=== PATIENT | female | born 1950 | race Caucasian/White ===

== ENCOUNTER 2017-03-14 05:15 | Inpatient (IN) | payer OTHER ==
[2017-03-14] VITALS (9 sets, daily range): BP systolic 109–151; BP diastolic 44–80
[~2017-03-14] VITALS: Ht 165.1 cm; Wt 118.8 kg
--- NOTE | ~2017-03-14 | PR ---
[place], [place] PROGRESS NOTE NAME: GEORGI BRENNAN [facility] #: [id number] UNIT #: [id number] ROOM: 531 DOCTOR: KT GROSS MD,GABY BIRTHDATE: [birth year] DOS: 03/15/2017 SUBJECTIVE: She was independently seen and examined today with [id number] encounter. History was confirmed. Physical examination performed. All the available labs reviewed. Assessment and management for this patient personally completed for the patient today's visit as well. The note done by the medical care administrator, was approved. She has used the BiPAP for the patient, which was ordered yesterday. She reported reduction in symptoms of shortness of breath, cough and other symptoms in the last 24 hours. She has been noted quite comfortable at this time, sitting on the side of the bed. The cough has been noted decreased, but not resolved. Shortness of breath are noted decreased, oxygen supplementation for the patient has been gradually decreased, currently notify liter nasal cannula supplementation oxygen with a saturation recorded about 88-89% at rest. She refused to have arterial blood gases done today for assessment of the improvement in the ventilatory status. OBJECTIVE: VITAL SIGNS: The patient showed normal temperature, respiratory rate 18, heart rate 68, blood pressure 132/60. The pulse oxygen saturation of the patient noted on 50% Venturi mask as 94% saturation, the BiPAP with the same. HEENT AND GENERAL: Exam is noted with chronic obesity. NECK: Supple. CARDIOVASCULAR: S1, S2 audible. LUNGS: Noted with diffuse reduction in the breath sounds with expiratory wheezing, partially decreased from previous exam. ABDOMEN: Soft and obese. EXTREMITIES: Shows chronic obesity. LABORATORY DATA: CBC this morning was noted as normal. The BMP was noted as normal BUN and creatinine. The influenza A and B, nasal washing antigen for the patient noted negative. The respiratory viral panel for the patient was done yesterday, which was pending. Arterial blood gas on the BiPAP, the patient setting was 16/10 for about 4 hours, pH of 7.32, pCO2 of 52, pO2 of 71 noted 50% oxygen. IMPRESSION: 1. The patient has severe acute hypoxemic and hypercapnic respiratory failure as a result of acute exacerbation of chronic obstructive pulmonary disease. 2. History of obstructive sleep apnea disorder as well. 3. Chronic morbid obesity as well. 4. History of essential hypertension. PLAN OF MANAGEMENT: Dose of the Solu-Medrol of the patient will be decreased for the patient, this morning to 40 mg q. 8 hours. Continuation of the antibiotics and bronchodilators. She was encouraged about use of the BiPAP. She was also started Chantix to help with tobacco cessation. No acute side effects of the patient at this time were noted. Continuation of the other previous medical therapy, plan of management as in progress. [place], [place] PROGRESS NOTE NAME: GEORGI BRENNAN Enrique UNIT #: [id number] ROOM: 531 DOCTOR: GABY SARKAR MD BIRTHDATE: [birth year] GABY MERAZ MD CM:SAPNA [id number] GABY GROSS MD 03/15/17 2258 interface
--- NOTE | ~2017-03-14 | PR ---
[place], [place] PROGRESS NOTE [id number] UN[facility] #: [id number] ROOM: 531 DOCTOR: KT GROSS MD,GABY BIRTHDATE: [birth year] DOS: 03/16/2017 SUBJECTIVE: The patient was independently seen and examined, [id number]-px-[id number] encounter, history was confirmed. Physical examination was personally performed as well. All the labs were reviewed. Assessed medical management changes as necessary were made today for this visit. The note done by the medical pathologist was approved. The patient has been showing reduction and improvement of the respiratory symptom. Oxygen requirement noted 4 liter nasal cannula this morning at the bedside. OBJECTIVE VITAL SIGNS: Reviewed was noted essentially normal. Pulse oxygen saturation 94% on 4 liters nasal cannula. LUNGS: The patient noted with moderate reduction in breath sounds and improvement in the wheezing and air entry. ABDOMEN: Soft and obese. Bowel sounds present. EXTREMITIES: No edema. LABORATORY DATA: BMP for the patient was essentially noted grossly normal. The CBC was noted normal. IMPRESSION: 1. The patient with resolving acute hypercapnic and severe hypoxic respiratory failure with current medical management with acute exacerbation of chronic obstructive pulmonary disease. 2. History of obstructive sleep apnea disorder. PLAN OF TREATMENT: The patient would be recommended about reduction of the corticosteroid dose. Ambulation with and without oxygen to be done. Consider possible home discharge in the morning on oral medications converted as an antibiotic and the steroids. GABY MERAZ MD CM:PNTRANS [id number] GABY GROSS MD 03/17/17 0027 interface
--- NOTE | ~2017-03-14 | CON ---
[place], [place] REPORT OF CONSULTATION [id number] #: [id number] ROOM: 531 DOCTOR: GABY SARKAR MD BIRTHDATE: [birth year] DOS: 03/14/2017 PULMONARY CONSULTATION EVALUATION AND MANAGEMENT REASON FOR CONSULTATION: Assess the patient for acute respiratory failure and symptoms of shortness of breath. HISTORY OF PRESENT ILLNESS: A 66-year-old white female, who has been admitted to the hospital, as she developed progressive increased respiratory symptom for the past few days. The symptoms have been noted with severe shortness of breath for the past 2 days associated with a sore throat, nonproductive cough and wheezing. Shortness of breath was occurring with minimal exertion. The symptoms got significantly worsened prior to assessment in the Emergency Room this morning. She has been assessed in the Emergency Room and was noted pulse oxygen saturation only 71%, 5 liter nasal cannula. The patient was admitted to the hospital for further medical management. The patient does use oxygen supplementation 5 liter nasal cannula at home for the medical management of hypoxic respiratory failure. Currently, the patient has been using oxygen supplementation with the Venturi Mask. REVIEW OF SYSTEMS: CONSTITUTIONAL: She does complain of symptoms of fatigue and tiredness. Did not report any symptoms of fever or chills. EYES: Denies any burning, redness, or tenderness. EARS, NOSE, THROAT: Denies any symptoms of hoarseness. Denies postnasal drainage or epistaxis, does complain of sore throat. CARDIOVASCULAR: Denies anginal pain, edema or pain of the lower extremity. GASTROINTESTINAL: Dysphagia, nausea, vomiting, diarrhea, abdominal pain, hematemesis, melena, hematochezia, or abnormal weight loss, history of chronic severe obesity was known. GENITOURINARY: Dysuria, suprapubic pain or flank pain. SKIN: Denies lesions or rashes. MUSCULOSKELETAL: Denies acute joint pain, redness, tenderness. CENTRAL NERVOUS SYSTEM: Denies dizziness, diplopia, migraine headache, seizures or tingling sensation of the extremities. PAST MEDICAL HISTORY: Known with history of: 1. COPD. 2. Chronic hypoxic respiratory failure with use of oxygen 5 liters nasal cannula. 3. Obstructive sleep apnea disorder (noncompliant with the treatment with obstructive sleep apnea disorder diagnosis). 4. Hypothyroidism. 5. Morbid obesity. 6. Vitamin B12 deficiency. 7. Chronic nicotine dependence. PAST SURGICAL HISTORY: Reported. 1. Complete hysterectomy. 2. Cholecystectomy. [place], [place] REPORT OF CONSULTATION [facility] [id number] UNIT #: [id number] ROOM: 531 DOCTOR: KT GROSS MD,GABY BIRTHDATE: [birth year] SOCIAL HISTORY: The patient is . She has 2 children. Smoking was noted 1 pack of cigarettes per day from teenager, currently decreased to half a pack of cigarettes per day. The patient denies any history of alcohol use or any illicit drug use. Denies any history of occupation related pulmonary exposure. FAMILY HISTORY: Both parents have been . Father from complication mesothelioma. Mother from complication of congestive heart failure. HOME MEDICATIONS: Noted, reduce the use of amoxicillin, Zithromax, vitamin B12, Mucinex, levothyroxine, prednisone, and ProAir HFA inhaler. DRUG ALLERGIES: Noted, no known drug allergies. PHYSICAL EXAMINATION: GENERAL: This is a 66-year-old female, who has been currently noted with mild tachypnea at rest, resting in the bed. Height of 5 feet 5 inches, weight of 262 pounds, BMI 43.5. VITAL SIGNS: Normal temperature since admission, last few hours; respiratory 18-25; heart rate 89-102; blood pressure 151/52-190/65. Pulse oxygen saturation with the 50% Venturi mask 93% saturation, 5 liters nasal cannula 74% saturation in the Emergency Room recorded. HEENT: Shows head was atraumatic. Eyes nonicterus. Decreased posterior pharyngeal space, high tongue base and crowding of soft tissue structures. NECK: Supple. CARDIOVASCULAR: S1, S2 audible. No added sounds. LUNGS: General reduction in the breath sounds noted in the lungs bilaterally with diffuse expiratory wheezing, decreased air entry. There were no crackles. ABDOMEN: Noted, severe obesity. Bowel sounds present without any tenderness. EXTREMITIES: Shows chronic obesity without any edema, clubbing, cyanosis. CENTRAL NERVOUS SYSTEM: Cranial nerves 2-12 intact. No focal deficit. MUSCULOSKELETAL: No gross deformities. SKIN: Visible skin, no lesions or rashes. LABORATORY DATA: CBC 03/14, this morning was noted as completely normal. Chest x-ray, 1 view, which was done on 03/14, was noted as patchy infiltration was suspected in the left and the right perihilar area. Lactic acid noted 1.2. CMP of the patient this morning was noted normal BUN and creatinine. Other electrolytes are normal. D-dimer 0.49. Arterial blood gas of the patient, pH of 7.29, pCO2 of 61, pO2 of 63.9. The troponin was noted as normal. IMPRESSION: 1. The patient has been admitted to the hospital with current diagnosis of severe acute hypercapnic respiratory failure with acute hypoxic respiratory failure as a result of acute exacerbation of chronic obstructive pulmonary disease, history of chronic nicotine dependency. Possibility of small infiltration with the patient secondary to acute viral bacterial pneumonia would be considered as well. 2. History of morbid obesity with obstructive sleep apnea disorder, noncompliant with the treatment. [place], [place] REPORT OF CONSULTATION NAME: GEORGI BRENNAN UNIT #: [id number] ROOM: 531 DOCTOR: GABY SARKAR MD BIRTHDATE: [birth year] 3. History of morbid obesity as well. 4. History of essential hypertension and other medical illnesses. PLAN OF MANAGEMENT: The patient will be ordered the BiPAP to help to improve and stabilize the respiratory status, if tolerated, the setting of the BiPAP will be ordered with settings of 16/10 for this patient with repeating arterial blood gas in about 3 hours to reassess the response for the patient. The patient does use the BiPAP. Bronchodilator will be continued. Continuation of the antibiotic. The respiratory viral panel was the ordered. Solu-Medrol currently ordered. The patient 60 mg q. 8 hours, which would suffice. She agrees to use the Chantix; however, smoking cessation, which has been ordered as well. Collect the sputum for Gram stain and culture. The patient is able to expectorate sputum as well. Additional treatment changes continue to be made based on the progression of the illness. All other supportive plan of management and care. Respiratory viral panel as well as influenza, nasal washing antigens were ordered as well. Thanks for allowing me to participate in the care of this patient. GABY MERAZ MD CM:CONSTR:REPORT OF CONSULTATION 1257 03/15/17 0057 interface
--- NOTE | ~2017-03-14 | PR ---
[place], [place] PROGRESS NOTE NAME: GEORGI BRENNAN UNIT #: [id number] ROOM: 531 DOCTOR: GABY SARKAR MD BIRTHDATE: [birth year] DOS: 03/15/2017 SUBJECTIVE: The patient has been noted continued improvement and resolution of the acute symptom. She has been using oxygen supplementation between 2 and 3, 4 liters cannula. The patient has not been noted symptoms of chest pain. OBJECTIVE: VITAL SIGNS: For the patient which has been recorded showed normal temperature, respiratory rate 20, heart rate 73, blood pressure 136/63. The pulse oxygen saturation for the patient 4 liters 95% saturation. HEENT AND GENERAL: Chronic obesity. NECK: Supple. CARDIOVASCULAR: S1, S2 audible. LUNGS: For the patient was noted without any crackles, rhonchi, or wheezing at this time. ABDOMEN: Soft and obese. LABORATORY DATA: BMP of the patient was noted as normal. The CBC of the patient of 03/17/2017 remains normal. The respiratory viral panel for the patient nasopharyngeal specimen, the patient noted positive for rhinovirus. IMPRESSION: 1. The patient with exacerbation of chronic obstructive pulmonary disease secondary to acute viral infection with [id number] hypercapnic hypoxic respiratory failure, markedly improved in the past 2 days. 2. History of obstructive sleep apnea disorder. PLAN OF TREATMENT: From the pulmonary standpoint, the patient could be discharged home on tapering dose of prednisone. No further antibiotic will be needed since the patient currently tolerating antiviral in origin. She was advised to continue home medication. The patient with oxygen supplementation and for chronic obstructive pulmonary disease as well as obstructive sleep apnea disorder. Outpatient assessment could be established by the patient for further total pulmonary assessment as an outpatient. [place], [place] PROGRESS NOTE NAME: GEORGI BRENNAN UNIT #: [id number] ROOM: 531 DOCTOR: GABY SARKAR MD BIRTHDATE: [birth year] GABY MERAZ MD CM:PNTRANS [phone] GABY GROSS MD 03/18/17 0232 interface
--- NOTE | ~2017-03-14 | PR ---
[place], [place] PROGRESS NOTE [id number] UN[facility] #: [id number] ROOM: 531 DOCTOR: MARBIN HOLGUIN DO BIRTHDATE: [birth year] DOS: 03/16/2017 This note is to be attached to the progress note dictated separately by Dr. Duron. SUBJECTIVE: The patient was evaluated today. She is awake and responsive. She denies any chest pain. States her breathing seems to have improved, though she is still having some occasional shortness of breath. Denies nausea, vomiting, diarrhea or any other symptoms. OBJECTIVE: VITAL SIGNS: Temperature is 98.3, pulse was 69, respiratory rate 20, blood pressure is 138/62, bedside pulse oximetry is 97% on 4 liters nasal cannula. GENERAL: Awake, alert, oriented, no acute distress. HEART: Regular rate and rhythm. No murmur. PULMONARY: Lungs moving more air with minimal wheezing. No crackles left. ABDOMEN: Soft, nontender, nondistended. HEENT: No change. EXTREMITIES: No edema or erythema. PSYCHOLOGIC: Good recent and remote memory. NEUROLOGIC: No acute focal neuro deficits. SKIN: No new lesions or ulcerations. LABORATORY DATA: WBC 7.6, hemoglobin 12.6 and platelets are 222. Chemistries from this morning, sodium is 142, potassium is 4.3, chloride is 105, carbon dioxide 31, creatinine 0.76 and estimated GFR ____, glucose is 117, calcium is 8.3. Vitamin D is 19.2. Vitamin B12 is 497. TSH is 6.49. D4 is 0.57 and vitamin D is 93.2. ASSESSMENT: 1. Community-acquired pneumonia, continues to improve. 2. Hypoxemic and hypercapnic respiratory failure with chronic obstructive pulmonary disease exacerbation. 3. Chronic Morbid obesity. 4. Essential hypertension. PLAN AND MANAGEMENT: The Solu-Medrol has been decreased again. The patient is doing well. We will be continuing the bronchodilators and the current antibiotics. We will be adding a BiPAP at night. The patient will likely be discharged tomorrow if she continues to do well. For more information, please see Dr. Duron's note. [employer]LE[employer], DO [place], [place] PROGRESS NOTE NAME: GEORGI BRENNAN Enrique UNIT #: [id number] ROOM: 531 DOCTOR: MARBIN HOLGUIN DO BIRTHDATE: [birth year] GABY DURON MD CM:SAPNA [id number] MARBIN HOLGUIN DO 03/17/17 1321 interface
--- NOTE | ~2017-03-14 | PR ---
[place], [place] PROGRESS NOTE NAME: GEORGI BRENNAN [facility] #: [id number] UNIT #: [id number] ROOM: 531 DOCTOR: MARBIN HOLGUIN DO BIRTHDATE: [birth year] DOS: 03/15/2017 SUBJECTIVE: Patient was evaluated today. She is awake, alert and responsive. She denies any nausea, vomiting, diarrhea, lightheadedness or chest pain. She is stating that her breathing has improved since yesterday. Denies any fevers overnight or any exacerbations since yesterday. OBJECTIVE: VITAL SIGNS: Temperature 97.7, pulse 68, respirations 18, blood pressure 132/60, and bedside pulse oximetry is 94% on Venturi mask at 50% oxygen flow rate. GENERAL: Awake, alert, oriented, minimal distress. HEENT: Head, normocephalic, atraumatic. Eyes, no lesions or ulcerations. ENT: No changes. NECK: Without lesions. Trachea is midline. LUNGS: Diminished breath sounds with some rhonchi and coughing. No clear crackles could be heard. CARDIAC: Regular rate and rhythm. No gallop, no murmur. ABDOMEN: Soft, nontender, nondistended, no masses. EXTREMITIES: Some edema can be seen, but no cyanosis or erythema. NEUROLOGIC: Grossly intact without any acute or focal neuro deficits. PSYCHOLOGICAL: Fair judgment and insight. SKIN: Warm and dry without new lesions or ulcerations. LABORATORY DATA: Sodium 139, potassium 4.5, chloride 105, carbon dioxide 30, creatinine 0.73 and GFR is more than 60, glucose is 129. A1c is 5.5. Vitamin D is low at 19.2. WBC is 5.5, hemoglobin is 12.6 and platelets are 206. Troponins negative. Microbiology: Blood cultures are pending. Urine culture showed preliminarily no growth. ASSESSMENT: 1. Acute exacerbation of chronic obstructive pulmonary disease with likely overlying pneumonia. 2. Morbid obesity with obstructive sleep apnea. 3. Essential hypertension. 4. Tobacco abuse. 5. Vitamin D deficiency. PLAN: We will continue with the current treatment with tapering down the Solu-Medrol to 40 mg from 60 every 8 hours. We will also continue with Rocephin and azithromycin and reevaluate tomorrow. Otherwise, if you have any questions or you need anymore information, please see Dr. Duron's note for more details. MARBIN HOLGUIN DO [place], [place] PROGRESS NOTE NAME: GEORGI BRENNAN UNIT #: [id number] ROOM: 531 DOCTOR: MARBIN HOLGUIN DO BIRTHDATE: [birth year] GABY DURON MD CM:PNTIMOTHY [id number] MARBIN HOLGUIN DO 03/16/17 0616 interface
[~2017-03-14 05:15] MED LIST: 'zithromax250 MG PO; AMOXICILLIN500 MG PO; DELTASONE10 MG PO; LEVOTHYROXINE0.2 MG PO; MUCINEX600 MG PO; PROAIR HFA0.09 MG/AC INH; VITAMIN B-12500 MCG PO
[2017-03-14 06:01] LABS: BASO % 0.2 % (0.0-1.0); HEMOGLOBIN 14.4 g/dl (12.0-16.0); LYMPH # 1.6 10*3/uL (1.3-4.4); LYMPH % 26.7 % (27.0-41.0); MEAN CELL VOLUME 98.7 fl (81.0-99.0); MEAN CORPUSCULAR HGB 30.9 pg (27.0-31.0); MEAN CORPUSCULAR HGB CONC 31.3 g/dl (33.0-37.0); MEAN PLATELET VOLUME 9.2 fl (9.6-12.3); MONO # 0.6 10*3/uL (0.1-1.0); MONO % 10.1 % (3.0-9.0); NEUT # 3.8 10*3/uL (2.3-7.9); NEUT % 62.7 % (47.0-73.0); PLATELET COUNT AUTOMATED 205 10*3/uL (130-400); RED BLOOD COUNT 4.66 10*6/uL (4.10-5.10); RED CELL DISTRI WIDTH 14.6 % (0-14.5); WHITE BLOOD COUNT 6.1 10*3/uL (4.8-10.8)
[2017-03-14 06:17] LABS: ALBUMIN 3.6 gm/dl (3.1-4.5); ALKALINE PHOSPHATASE 74 U/L (45-117); BUN 12 mg/dl (7-24); CHLORIDE 105 mmol/L (98-107); CREATININE 0.85 mg/dL (0.55-1.02); POTASSIUM 4.2 mmol/L (3.5-5.1); SGOT/AST 20 IU/L (3-35); SGPT/ALT 27 U/L (12-78); SODIUM 140 mmol/L (136-145)
[2017-03-14 06:30] LABS: TROPONIN I < 0.015 ng/ml (<0.045)
[2017-03-14 07:13] LABS: ABG BASE EXCESS 1.2 mmol/L (-2.0-2.0); ABG HCO3 28.7 mmol/l (22-26); ABG O2 SATURATION 91.6 % (95-97); ARTERIAL BLOOD GAS PH 7.295 (7.35-7.45); ARTERIAL BLOOD GAS PO2 63.9 mmHg (80-90)
--- NOTE | 2017-03-14 07:57 | NUR ---
A 66, admitted to , under the services of FIONA Douglas DO with a diagnosis of PNEUMONIA, ACUTE ON CHRONIC RESP FAILURE. Chief complaint is SHORTNESS OF BREATH. Patient arrived via bed from ER. Monitor applied. Initial assessment completed. Vital signs taken and recorded. FIONA DOUGLAS DO notified of admission to the unit. Orders received. See assessment for past medical history, medications and allergies. Patient and/or family oriented to unit. [facility] visitation policy reviewed. Clothing/patient valuable form completed. AMAN HUITRON
--- NOTE | 2017-03-14 08:03 | NUR ---
MED RECONCILIATION COMPLETED AT BEDSIDE WITH PT AND DAUGHTER.
[2017-03-14] MEDS ORDERED: ARMOUR THYROID180 M1 PO (08:21)
[2017-03-14] MEDS ORDERED: CHANTIX1 M1 PO (08:22)
--- NOTE | 2017-03-14 09:06 | NUR ---
PT REFUSES FLU VACCINE.
[2017-03-14 13:41] LABS: BILIRUBIN NEGATIVE (NEGATIVE); BLOOD 2+ (NEGATIVE); CLARITY CLEAR (CLEAR); COLOR YELLOW (YELLOW); GLUCOSE TRACE (NEGATIVE); KETONE NEGATIVE (NEGATIVE); LEUKO ESTERASE NEGATIVE (NEGATIVE); NITRITE NEGATIVE (NEGATIVE); SPECIFIC GRAVITY >= 1.030 (1.005-1.030); UROBILINOGEN 0.2 E.U./dl (0.2-1.0)
[2017-03-14 13:50] LABS: BACTERIA 1+; EPITHELIAL CELLS 0-2; RBC 0-2 rbc/hpf (0-2)
--- NOTE | 2017-03-14 15:03 | NUR ---
COLLECTED RVP AND RAPID INFLUENZA AND RVP SWABBS PER PHYSICIAN ORDER.
[2017-03-14] MEDS ORDERED: ARMOUR THYROID120 M1 PO (15:22)
--- NOTE | 2017-03-14 15:23 | NUR ---
VERIFIED ARMOUR THYROID THROUGH [facility].
[2017-03-14 18:09] LABS: ABG BASE EXCESS -0.1 mmol/L (-2.0-2.0); ABG HCO3 26.3 mmol/l (22-26); ABG O2 SATURATION 95.2 % (95-97); ARTERIAL BLOOD GAS PCO2 52.3 mmHg (35-45); ARTERIAL BLOOD GAS PH 7.322 (7.35-7.45); ARTERIAL BLOOD GAS PO2 71.6 mmHg (80-90)
--- NOTE | 2017-03-14 18:27 | NUR ---
NOTIFIED DR MERAZ OF ABG RESULTS. HE WANTS PT TO BE ON CONTINUOUS BIPAP EXCEPT FOR MEALS AND REPEAT ABG'S IN AM. NOTIFIED GEE.RT.
[2017-03-15] VITALS: BP 129/77
[2017-03-15 06:28] LABS: HEMATOCRIT 40.5 % (37.0-47.0); HEMOGLOBIN 12.6 g/dl (12.0-16.0); LYMPH # 0.8 10*3/uL (1.3-4.4); LYMPH % 14.9 % (27.0-41.0); MEAN CELL VOLUME 97.8 fl (81.0-99.0); MEAN CORPUSCULAR HGB 30.4 pg (27.0-31.0); MEAN CORPUSCULAR HGB CONC 31.1 g/dl (33.0-37.0); MONO # 0.3 10*3/uL (0.1-1.0); MONO % 5.8 % (3.0-9.0); NEUT # 4.4 10*3/uL (2.3-7.9); NEUT % 78.9 % (47.0-73.0); PLATELET COUNT AUTOMATED 206 10*3/uL (130-400); RED BLOOD COUNT 4.14 10*6/uL (4.10-5.10); RED CELL DISTRI WIDTH 14.2 % (0-14.5); WHITE BLOOD COUNT 5.5 10*3/uL (4.8-10.8)
[2017-03-15 06:47] LABS: ALBUMIN 3.1 gm/dl (3.1-4.5); BUN 14 mg/dl (7-24); CHLORIDE 105 mmol/L (98-107); CHOLESTEROL 223 mg/dL (<200); CREATININE 0.73 mg/dL (0.55-1.02); FREE T4 0.57 ng/dl (0.76-1.46); PHOSPHOROUS 2.5 mg/dL (2.5-4.9); POTASSIUM 4.5 mmol/L (3.5-5.1); SGOT/AST 18 IU/L (3-35); SGPT/ALT 23 U/L (12-78); SODIUM 139 mmol/L (136-145); TOTAL PROTEIN 6.9 gm/dL (6.4-8.2); TRIGLYCERIDES 75 mg/dl (<150); VLDL CHOLESTEROL 15 mg/dL (6-40)
[2017-03-15 06:53] LABS: ALKALINE PHOSPHATASE 59 U/L (45-117); HDL CHOLESTEROL 87 mg/dl (40-60); LDL CHOLESTEROL 121 mg/dL (9-159)
[2017-03-15 07:20] LABS: VITAMIN D, 25-HYDROXY 19.2 ng/mL (30-100)
[2017-03-15 08:00] VITALS: BP 132/60
--- NOTE | 2017-03-15 08:00 | NUR ---
ASSUMED CARE OF PATIENT, PATIENT HAS BEEN TRANSFERRED FROM BIPAP TO VENTURI MASK THIS MORNING. PLEASANT, COOPERATIVE.
--- NOTE | 2017-03-15 08:00 | NUR ---
REFUSES TO HAVE ABG PERFORMED. RN PRESENT AND AWARE.
--- NOTE | 2017-03-15 08:02 | NUR ---
PT WANTING BIPAP OFF AT THIS TIME. OFF BIPAP, PLACED ON 50% VM. RN PRESENT AND AWARE.
[2017-03-15 12:00] VITALS: BP 146/59
[2017-03-15 16:00] VITALS: BP 146/57
[2017-03-15 20:00] VITALS: BP 135/57
[2017-03-16] VITALS: BP 132/64
[2017-03-16 06:31] LABS: BASO % 0.1 % (0.0-1.0); HEMATOCRIT 40.1 % (37.0-47.0); HEMOGLOBIN 12.6 g/dl (12.0-16.0); LYMPH % 13.1 % (27.0-41.0); MEAN CORPUSCULAR HGB 30.8 pg (27.0-31.0); MEAN CORPUSCULAR HGB CONC 31.4 g/dl (33.0-37.0); MEAN PLATELET VOLUME 9.1 fl (9.6-12.3); MONO # 0.3 10*3/uL (0.1-1.0); MONO % 4.5 % (3.0-9.0); NEUT # 6.2 10*3/uL (2.3-7.9); NEUT % 81.8 % (47.0-73.0); PLATELET COUNT AUTOMATED 222 10*3/uL (130-400); RED BLOOD COUNT 4.09 10*6/uL (4.10-5.10); RED CELL DISTRI WIDTH 14.3 % (0-14.5); WHITE BLOOD COUNT 7.6 10*3/uL (4.8-10.8)
[2017-03-16 07:00] LABS: BUN 17 mg/dl (7-24); CHLORIDE 105 mmol/L (98-107); CREATININE 0.76 mg/dL (0.55-1.02); POTASSIUM 4.3 mmol/L (3.5-5.1); SODIUM 142 mmol/L (136-145)
[2017-03-16 08:00] VITALS: BP 128/68
--- NOTE | 2017-03-16 09:00 | NUR ---
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 Patient states lives at home with alone. There are few steps in the home. Physician: yelitza coronel [facility] [place] [facility] Patient's level of ADLs: INDEPENDENT Patient has working utilities: all working DME: home oxygen, portable tanks, cane and walker Follow-up physician's appointment after d/c: will Does patient want to access PORTAL?: no Discharge plan discussed with patient, patient lives at home alone, she is independent in adls and ambulation, patient has home oxygen and portable tanks at home, patient states she will be going back home and dneies any home needs. IVONE HAN
--- NOTE | 2017-03-16 09:12 | NUR ---
DR. MERAZ REQUESTED PT WALK WITH PORTABLE 02. WILL CONINUE TO MONITOR PT
--- NOTE | 2017-03-16 10:15 | NUR ---
PTS SAT 92-94% ON 4L/M NC AT REST. PT AMBULATED SHORT DISTANCE, SAT DROPPING TO 84% ON 4L/M, O2 TO 6L/M, SAT STAYING AT 84-86%. PT RETURNING TO ROOM, SAT 90% ON 5L/M NC, AT REST. SAT 94% ON 4L/M NC AT REST. INSTRUCTIING AND ENCOURAGING PURSED LIP BREATHING THROUOUT. HR 80 PRE/ 102 DURING WALK.
--- NOTE | 2017-03-16 10:34 | NUR ---
DR. MERAZ ORDERED TO AMBULATE PT WITH PORTIBLE O2 ON FLOOR TO ASSESS O2 ON AMBULATION. PT ALREEADY ON HOME O2.
[2017-03-16 12:00] VITALS: BP 138/62
--- NOTE | 2017-03-16 12:33 | NUR ---
DOES NOT WANT BIPAP ON AT THIS TIME.
[2017-03-16 16:00] VITALS: BP 142/70
[2017-03-16 20:00] VITALS: BP 129/59
--- NOTE | 2017-03-16 20:42 | NUR ---
PT MEDICATED WITH PERCOCET FOR COMPLAINTS OF GENERALIZED PAIN, ALSO GIVEN TYLENOL FOR HEADACHE PAIN. WILL CONTINUE TO MONITOR, CALL LIGHT WITHIN REACH
--- NOTE | 2017-03-16 23:04 | NUR ---
pt placed on bipap
[2017-03-17] VITALS: BP 135/74
[2017-03-17 05:08] LABS: ADENOVIRUS Negative (Negative); INFLUENZA A Negative (Negative); INFLUENZA B Negative (Negative); METAPNEUMOVIRUS Negative (Negative); PARAINFLUENZA 1 Negative (Negative); PARAINFLUENZA 2 Negative (Negative); PARAINFLUENZA 3 Negative (Negative); RHINOVIRUS Positive (Negative); RSV A Negative (Negative); RSV B Negative (Negative)
[2017-03-17 07:15] LABS: BASO % 0.2 % (0.0-1.0); HEMATOCRIT 39.5 % (37.0-47.0); HEMOGLOBIN 12.5 g/dl (12.0-16.0); LYMPH # 1.5 10*3/uL (1.3-4.4); LYMPH % 23.4 % (27.0-41.0); MEAN CELL VOLUME 96.6 fl (81.0-99.0); MEAN CORPUSCULAR HGB 30.6 pg (27.0-31.0); MEAN CORPUSCULAR HGB CONC 31.6 g/dl (33.0-37.0); MONO # 0.4 10*3/uL (0.1-1.0); MONO % 5.8 % (3.0-9.0); NEUT # 4.6 10*3/uL (2.3-7.9); PLATELET COUNT AUTOMATED 216 10*3/uL (130-400); RED BLOOD COUNT 4.09 10*6/uL (4.10-5.10); RED CELL DISTRI WIDTH 14.4 % (0-14.5); WHITE BLOOD COUNT 6.6 10*3/uL (4.8-10.8)
[2017-03-17 07:44] LABS: BUN 14 mg/dl (7-24); CHLORIDE 104 mmol/L (98-107); CREATININE 0.72 mg/dL (0.55-1.02); SODIUM 140 mmol/L (136-145)
[2017-03-17 08:00] VITALS: BP 144/69
--- NOTE | 2017-03-17 09:48 | NUR ---
case management visits with patient, patient denies any home needs
[2017-03-17 12:00] VITALS: BP 136/63
[2017-03-17] MEDS ORDERED: DOXYCYCLINE100 M3 PO (12:00)
[2017-03-17] MEDS ORDERED: PREDNISONE10 MG PO (12:00)
[2017-03-17] MEDS ORDERED: VITAMIN D-32000 UNIT PO (12:02)
--- NOTE | 2017-03-17 14:15 | NUR ---
Discharge instructions reviewed with patient/family. Patient receptive and verbalizes understanding. Follow-up care arranged. Written instructions given to patient/family. PAUL FRANCO
[2017-03-17 15:09] LABS: LEGIONELLA URINARY ANTIGEN Negative (Negative)
== END 2017-03-17 14:15 | disposition home or self-care (01) | DRG 871 ==
LOC: ED 05:15 → 5E 06:23 → EDHOLD 06:23 → 5E 06:30
PROVIDERS: Emergency Medicine Emergency Medical Services; Internal Medicine; Internal Medicine Critical Care Medicine; ADMIT Emergency Medicine
PROC: 5A09357 Assistance with Respiratory Ventilation, Less than 24 Consecutive Hours, Continuous Positive Airway Pressure (ICD-10-PCS; principal; 2017-03-14)
PROC: 5A09357 Assistance with Respiratory Ventilation, Less than 24 Consecutive Hours, Continuous Positive Airway Pressure (ICD-10-PCS; 2017-03-16)
DX: A41.9 Sepsis, unspecified organism (principal); J96.21 Acute and chronic respiratory failure with hypoxia; J18.9 Pneumonia, unspecified organism; J96.22 Acute and chronic respiratory failure with hypercapnia; J44.1 Chronic obstructive pulmonary disease with (acute) exacerbation; J44.0 Chronic obstructive pulmonary disease with (acute) lower respiratory infection; Z68.42 Body mass index [BMI] 45.0-49.9, adult; E66.01 Morbid (severe) obesity due to excess calories; R65.20 Severe sepsis without septic shock; E83.41 Hypermagnesemia; F17.200 Nicotine dependence, unspecified, uncomplicated; E03.9 Hypothyroidism, unspecified; E53.8 Deficiency of other specified B group vitamins; I10 Essential (primary) hypertension; G47.33 Obstructive sleep apnea (adult) (pediatric); Z82.49 Family history of ischemic heart disease and other diseases of the circulatory system; Z71.6 Tobacco abuse counseling; Z99.81 Dependence on supplemental oxygen; Z90.710 Acquired absence of both cervix and uterus; Z79.2 Long term (current) use of antibiotics; Z90.49 Acquired absence of other specified parts of digestive tract; Z79.899 Other long term (current) drug therapy

== ENCOUNTER → 2017-04-25 | Outpatient (CLI) | payer OTHER ==
[~2017-04-25] MED LIST changes: +ARMOUR THYROID120 M1 PO; +ARMOUR THYROID180 M1 PO; +CHANTIX1 M1 PO; +DOXYCYCLINE100 M3 PO; +PREDNISONE10 MG PO; +VITAMIN D-32000 UNIT PO
== END | disposition home or self-care (01) ==
LOC: CT 14:39
DX: J98.4 Other disorders of lung (principal); J44.9 Chronic obstructive pulmonary disease, unspecified; R06.02 Shortness of breath; F17.200 Nicotine dependence, unspecified, uncomplicated

== ENCOUNTER → 2018-03-28 | Outpatient (CLI) | payer OTHER | END | disposition home or self-care (01) | LOC: US 14:48 | DX: E03.9 Hypothyroidism, unspecified (principal) ==

== ENCOUNTER 2018-04-04 19:18 | Inpatient (IN) | payer OTHER ==
[~2018-04-04] VITALS: Ht 165.1 cm; Wt 118.1 kg
--- NOTE | ~2018-04-04 | PR ---
[place], [place] PROGRESS NOTE [id number] #: [id number] ROOM: 504 DOCTOR: GABY SARKAR MD BIRTHDATE: [birth year] DOS: 04/06/2018 PULMONARY PROGRESS NOTE SUBJECTIVE: She has reported reduction in respiratory symptoms like nonproductive cough, wheezing and shortness of breath. There were no symptoms of chest pain or hemoptysis reported by the patient. She has been continued on corticosteroids, bronchodilators, and antibiotics. OBJECTIVE: VITAL SIGNS: For the patient, which were recorded showed the temperature noted as normal. The respiratory rate of the patient recorded as 19, heart rate 72, blood pressure 140/50. The pulse oxygen saturation of the patient recorded as 92% on 4 liters nasal cannula. HEENT: Shows head was atraumatic. Eyes nonicterus. NECK: Supple. CARDIOVASCULAR: S1, S2 audible. LUNGS: The patient was noted with zjfq-qo-vqomivzs decreased breath sounds in the lungs noted bilaterally with mild to moderate expiratory wheezing, partially decreased from previous examinations. ABDOMEN: Soft and obese. EXTREMITIES: No edema. LABORATORY DATA: CBC this morning as normal. BMP; glucose 151, normal BUN and creatinine. Potassium noted mildly elevated as 5.4. IMPRESSION: The patient with: 1. Resolving acute exacerbation of chronic obstructive pulmonary disease, acute tracheobronchitis. 2. Chronic obesity. 3. Mild hyperkalemia. PLAN OF MANAGEMENT: Decrease the Solu-Medrol dose. Repeat the potassium level for the patient prior to making any intervention. Usual care. All other supportive therapy, plan of management, care plan and treatment. [place], [place] PROGRESS NOTE NAME: GEORGI BRENNAN UNIT #: [id number] ROOM: 504 DOCTOR: GABY SARKAR MD BIRTHDATE: [birth year] GABY MERAZ MD CM:PNTRANS [phone] GABY GROSS MD 04/07/18 0002 interface
--- NOTE | ~2018-04-04 | PR ---
[place], [place] PROGRESS NOTE NAME: GEORGI BRENNAN [facility] #: [id number] UNIT #: [id number] ROOM: 504 DOCTOR: KT GROSS MD,GABY BIRTHDATE: [birth year] DOS: 04/07/2018 PULMONARY PROGRESS NOTE SUBJECTIVE: The patient has been showing progressive reduction and improvement in the respiratory symptoms with improvement in the cough, wheezing, shortness of breath, and all the other symptoms reported. There were no symptoms of chest pain, fever or chills. OBJECTIVE: VITAL SIGNS: Normal temperature, respiratory rate 18, heart rate 72, blood pressure 134/68. Pulse oxygen saturation of the patient was recorded as 94-96% on 3.5 liters nasal cannula. HEENT: Shows chronic obesity. NECK: Supple. CARDIOVASCULAR: S1 and S2 audible. LUNGS: Without any crackles. Mild expiratory wheezing bilaterally. ABDOMEN: Soft, nontender. Bowel sounds present. EXTREMITIES: No acute edema. IMPRESSION: Progressive improvement and resolution of acute exacerbation of chronic obstructive pulmonary disease and bronchitis noted. PLAN OF TREATMENT: The patient could be discharged home at the present time on tapering prednisone and antibiotics. Outpatient followup to be kept as previously for my office. GABY MERAZ MD CM:SAPNA [id number] GABY GROSS MD 04/07/18 1309 interface
--- NOTE | ~2018-04-04 | CON ---
[place], [place] REPORT OF CONSULTATION NAME: GEORGI BRENNAN [facility] #: [id number] UNIT #: [id number] ROOM: 504 DOCTOR: KT GROSS MDGABY BIRTHDATE: [birth year] DOS: 04/05/2018 PULMONARY CONSULTATION, EVALUATION, AND MANAGEMENT CONSULTATION REQUESTED BY: Hospitalist service. REASON FOR CONSULTATION: For assessment of current increased respiratory symptoms, exacerbation of COPD. HISTORY OF PRESENT ILLNESS: This 67-year-old white female patient with history of chronic obstructive pulmonary disease as well as sleep apnea disorder. The patient noted nonadherent to treatment of sleep apnea disorder. The patient has been noted with symptoms of cough and chest congestion occurring for 3 days associated with shortness of breath and wheezing. Symptoms are noted progressive worsening. The cough has been noted with moderate amount of thick green sputum expectoration intermittently. The patient has taken [id number] medication, Mucinex that has not been noted resolution of the symptoms. She does complain of chest congestion and excessive cough. The patient presented to the hospital in the Emergency Room where she has been assessed and currently admitted to the hospital for medical management of acute exacerbation of COPD. She has been given a DuoNeb treatment and Solu-Medrol intravenously as well. Currently, the patient has been still noted symptoms of shortness of breath this morning and complaining of fatigue. REVIEW OF SYSTEMS: CONSTITUTIONAL: Fatigue and tiredness. Denies symptoms of fever or chills. EYES: Denies burning, redness, or tenderness. EARS, NOSE, THROAT SYMPTOMS: Denies sore throat, hoarseness, otalgia, postnasal drainage, or epistaxis. CARDIOVASCULAR: Denies anginal pain, edema, and pain of the lower extremities. GASTROINTESTINAL: Denies symptoms of dysphagia, nausea, vomiting, diarrhea, abdominal pain, hematemesis, melena, or hematochezia. SKIN: Denies lesions or rashes. GENITOURINARY SYMPTOMS: No dysuria and suprapubic hematuria. CENTRAL NERVOUS SYSTEM: Denies dizziness, headache, diplopia, or syncopal episode. Remaining systems were reviewed. They were noted all negative. PAST MEDICAL HISTORY: 1. COPD. 2. Chronic hypoxic respiratory failure. 3. Obstructive sleep apnea disorder, not adherence with the treatment. 4. Hypothyroidism. 5. Morbid obesity. 6. Vitamin B12 deficiency. 7. Nicotine dependence. PAST SURGICAL HISTORY: 1. Cholecystectomy. [place], [place] REPORT OF CONSULTATION [facility] #: [id number] UNIT #: [id number] ROOM: 504 DOCTOR: KT GROSS MD,GABY BIRTHDATE: [birth year] 2. Hysterectomy. SOCIAL HISTORY: The patient is , has 2 children, lives at home. Smoking noted since the early teens, a pack of cigarettes per day. There was no history of alcohol use or illicit drug use. FAMILY HISTORY: Both parents . Father with complication of mesothelioma. Mother with complication of congestive heart failure. MEDICATIONS: Reviewed medication reconciliation list, use of ProAir HFA inhaler, albuterol sulfate with the nebulizer, Flovent Diskus, Breo Ellipta, cetirizine, vitamin B12, levothyroxine, diclofenac, omeprazole, and other p.r.n. home medications. DRUG ALLERGIES: The patient noted no known drug allergies. PHYSICAL EXAMINATION: GENERAL: This is a 67-year-old female, the patient currently noted with excessive coughing on admission and assessment. Height of 5 feet 5 inches, weight of 260 pounds, BMI 43.3. VITAL SIGNS: For the patient which were recorded showed normal temperature, respiratory rate 27-20, heart rate of 75-80, blood pressure 138/57-132/80. Pulse oxygen saturation on 5 liters nasal cannula 92% saturation. HEENT: Head was atraumatic. Eyes nonicterus. NECK: Supple. Decreased posterior pharyngeal space, high tongue base crowding of soft tissue structures. CARDIOVASCULAR: S1, S2 is audible. LUNGS: Decreased breath sounds in the lungs noted bilaterally with expiratory wheezing, no crackles. ABDOMEN: Soft, nontender, and obese. EXTREMITIES: The patient was noted with chronic obesity findings. VISIBLE SKIN: No lesions or rashes. MUSCULOSKELETAL: Without any deformities. CENTRAL NERVOUS SYSTEM: Cranial nerves 2-12 intact. LABORATORY DATA: CMP on admission this morning, glucose 224, normal BUN and creatinine. CBC this morning, WBC count normal, hemoglobin and hematocrit normal, platelet count normal. Troponins were normal. The chest x-ray, which was done in the Emergency Room, hyperinflation changes without any acute pulmonary infiltration. IMPRESSION: 1. The patient who has been currently admitted to hospital with rapidly progressive symptoms. The patient ____ responding to outpatient treatment for acute exacerbation of chronic obstructive pulmonary disease. 2. History of nicotine dependence. 3. History of allergic rhinitis. 4. Chronic morbid obesity. 5. Obstructive sleep apnea disorder, nonadherence with the treatment. 6. History of hypothyroidism. [place], [place] REPORT OF CONSULTATION NAME: GEORGI BRENNAN UNIT #: [id number] ROOM: [facility] [place] DOCTOR: KT GROSS MD,GABY BIRTHDATE: [birth year] PLAN OF MANAGEMENT: Continue Solu-Medrol 60 mg q.8 hours, this morning, the dose will be decreased. In the next 24 hours based on improvement in symptoms continue the patient's current antibiotic. The patient had Rocephin and Zithromax. Bronchodilators every 4 hours. Abstinence ____ tobacco use in counseling. Usual care with additional treatment changes will be ordered based on the progression of the illness. GABY MERAZ MD CM:CONSTR:REPORT OF CONSULTATION 1425 04/06/18 0158 interface
--- NOTE | ~2018-04-04 | EKG ---
[place], [place] ELECTROCARDIOGRAM REPORT NAME: GEORGI BRENNAN UNIT #: [id number] ROOM: 504 DOCTOR: JOHN DRAFT REPORT BIRTHDATE: [birth year] [facility] Test Date: 2018-04-05 Test Time: 00:45:02 Pat Name: GEORGI BRENNAN Department: Room: 504 Gender: F Formula Checker: Suzan Griffin : 1950 Requested By: DEL JAIMES Order Number: [id number] Reading MD: Tylor Mcdaniel MD Measurements Intervals [place] Rate: 88 P: 77 IN: 184 QRS: 95 QRSD: 121 T: 72 QT: 381 QTc: 461 Interpretive Statements Sinus rhythm Nonspecific intraventricular conduction delay Borderline T abnormalities, lateral leads Baseline wander in lead(s) V5,V6 Electronically Signed On 04-05-2018 17:51:31 PST by Tylor Mcdaniel MD CM:EKGRPT:ELECTROCARDIOGRAM REPORT [id number] DEL GARDNER DRAFT REPORT DEL JAIMES DO
[~2018-04-04 19:18] MED LIST changes: +VITAMIN B-121000 MC2 PO; -VITAMIN B-12500 MCG PO
[2018-04-04] MEDS ORDERED: Synthroid,Lev200 MCG PO (19:24)
[2018-04-04 20:15] LABS: BASO % 0.4 % (0.0-1.0); EOS % 0.2 % (1.0-4.0); HEMATOCRIT 48.5 % (37.0-47.0); HEMOGLOBIN 15.1 g/dl (12.0-16.0); LYMPH # 1.8 10*3/uL (1.3-4.4); LYMPH % 36.3 % (27.0-41.0); MEAN CELL VOLUME 94.9 fl (81.0-99.0); MEAN CORPUSCULAR HGB 29.5 pg (27.0-31.0); MEAN CORPUSCULAR HGB CONC 31.1 g/dl (33.0-37.0); MEAN PLATELET VOLUME 8.9 fl (9.6-12.3); MONO # 0.5 10*3/uL (0.1-1.0); MONO % 10.3 % (3.0-9.0); NEUT # 2.6 10*3/uL (2.3-7.9); NEUT % 52.6 % (47.0-73.0); PLATELET COUNT AUTOMATED 217 10*3/uL (130-400); RED BLOOD COUNT 5.11 10*6/uL (4.10-5.10); RED CELL DISTRI WIDTH 15.3 % (0-14.5)
[2018-04-04 20:33] LABS: ALBUMIN 3.4 gm/dl (3.1-4.5); ALKALINE PHOSPHATASE 78 U/L (45-117); BUN 11 mg/dl (7-24); CHLORIDE 98 mmol/L (98-107); POTASSIUM 3.9 mmol/L (3.5-5.1); SGOT/AST 25 IU/L (3-35); SGPT/ALT 26 U/L (12-78); SODIUM 135 mmol/L (136-145)
[2018-04-04 20:44] VITALS: BP 138/57
[2018-04-04 22:50] VITALS: BP 123/59
[2018-04-05] VITALS (8 sets, daily range): BP systolic 106–135; BP diastolic 49–80
[2018-04-05 04:06] LABS: BASO % 0.2 % (0.0-1.0); HEMATOCRIT 47.7 % (37.0-47.0); HEMOGLOBIN 14.3 g/dl (12.0-16.0); LYMPH # 0.6 10*3/uL (1.3-4.4); LYMPH % 10.8 % (27.0-41.0); MEAN CELL VOLUME 96.4 fl (81.0-99.0); MEAN CORPUSCULAR HGB 28.9 pg (27.0-31.0); MEAN PLATELET VOLUME 8.9 fl (9.6-12.3); MONO # 0.1 10*3/uL (0.1-1.0); MONO % 0.9 % (3.0-9.0); NEUT # 4.7 10*3/uL (2.3-7.9); NEUT % 87.9 % (47.0-73.0); PLATELET COUNT AUTOMATED 198 10*3/uL (130-400); RED BLOOD COUNT 4.95 10*6/uL (4.10-5.10); RED CELL DISTRI WIDTH 15.2 % (0-14.5); WHITE BLOOD COUNT 5.4 10*3/uL (4.8-10.8)
[2018-04-05 04:22] LABS: ALBUMIN 3.2 gm/dl (3.1-4.5); ALKALINE PHOSPHATASE 77 U/L (45-117); BUN 11 mg/dl (7-24); CHLORIDE 103 mmol/L (98-107); CHOLESTEROL 208 mg/dL (<200); CREATININE 0.94 mg/dL (0.55-1.02); HDL CHOLESTEROL 74 mg/dl (40-60); LDL CHOLESTEROL 117 mg/dL (9-159); PHOSPHOROUS 2.9 mg/dL (2.5-4.9); POTASSIUM 4.3 mmol/L (3.5-5.1); SGOT/AST 21 IU/L (3-35); SGPT/ALT 22 U/L (12-78); SODIUM 140 mmol/L (136-145); TOTAL PROTEIN 7.6 gm/dL (6.4-8.2); TRIGLYCERIDES 87 mg/dl (<150); VLDL CHOLESTEROL 17 mg/dL (6-40)
[2018-04-05 04:24] LABS: FREE T4 0.78 ng/dl (0.76-1.46)
[2018-04-05] MEDS ORDERED: BREO ELLIPTA 21 EACH INH (10:45)
[2018-04-05] MEDS ORDERED: FLOVENT DISKU100 MCG INH (10:46)
[2018-04-05] MEDS ORDERED: VENTOLIN 02.5 MG/3 M INH (10:46)
[2018-04-05] MEDS ORDERED: VOLTAREN100 GM T (10:48)
[2018-04-05] MEDS ORDERED: ZYRTEC10 MG PO (10:49)
[2018-04-05] MEDS ORDERED: PRILOSEC20 M1 PO (10:50)
[2018-04-05 14:20] LABS: BILIRUBIN NEGATIVE (NEGATIVE); BLOOD 1+ (NEGATIVE); CLARITY SL CLOUDY (CLEAR); COLOR YELLOW (YELLOW); GLUCOSE NEGATIVE (NEGATIVE); KETONE NEGATIVE (NEGATIVE); LEUKO ESTERASE NEGATIVE (NEGATIVE); NITRITE NEGATIVE (NEGATIVE); SPECIFIC GRAVITY >= 1.030 (1.005-1.030); UROBILINOGEN 0.2 E.U./dl (0.2-1.0)
[2018-04-05 14:29] LABS: BACTERIA 2+; EPITHELIAL CELLS 15-20; MUCOUS 1+
[2018-04-06] VITALS: BP 104/50
[2018-04-06 06:18] LABS: BUN 17 mg/dl (7-24); CHLORIDE 105 mmol/L (98-107); CREATININE 0.83 mg/dL (0.55-1.02); SODIUM 138 mmol/L (136-145)
[2018-04-06 06:21] LABS: POTASSIUM 5.4 mmol/L (3.5-5.1)
[2018-04-06 06:55] LABS: BASO % 0.2 % (0.0-1.0); HEMOGLOBIN 13.8 g/dl (12.0-16.0); MEAN CELL VOLUME 96.2 fl (81.0-99.0); MEAN CORPUSCULAR HGB 28.9 pg (27.0-31.0); MONO # 0.2 10*3/uL (0.1-1.0); MONO % 3.1 % (3.0-9.0); NEUT # 5.3 10*3/uL (2.3-7.9); NEUT % 81.2 % (47.0-73.0); PLATELET COUNT AUTOMATED 207 10*3/uL (130-400); RED BLOOD COUNT 4.78 10*6/uL (4.10-5.10); RED CELL DISTRI WIDTH 15.1 % (0-14.5); WHITE BLOOD COUNT 6.5 10*3/uL (4.8-10.8)
[2018-04-06 12:00] VITALS: BP 109/48
[2018-04-06 16:00] VITALS: BP 110/54
[2018-04-06 20:00] VITALS: BP 116/60
[2018-04-07] VITALS: BP 111/58
[2018-04-07 06:57] LABS: BASO % 0.1 % (0.0-1.0); HEMATOCRIT 42.5 % (37.0-47.0); HEMOGLOBIN 13.1 g/dl (12.0-16.0); LYMPH # 1.4 10*3/uL (1.3-4.4); LYMPH % 19.3 % (27.0-41.0); MEAN CELL VOLUME 96.4 fl (81.0-99.0); MEAN CORPUSCULAR HGB 29.7 pg (27.0-31.0); MEAN CORPUSCULAR HGB CONC 30.8 g/dl (33.0-37.0); MEAN PLATELET VOLUME 9.2 fl (9.6-12.3); MONO # 0.4 10*3/uL (0.1-1.0); MONO % 5.2 % (3.0-9.0); NEUT # 5.3 10*3/uL (2.3-7.9); NEUT % 74.6 % (47.0-73.0); PLATELET COUNT AUTOMATED 216 10*3/uL (130-400); RED BLOOD COUNT 4.41 10*6/uL (4.10-5.10); RED CELL DISTRI WIDTH 15.4 % (0-14.5); WHITE BLOOD COUNT 7.1 10*3/uL (4.8-10.8)
[2018-04-07 07:22] LABS: BUN 14 mg/dl (7-24); CHLORIDE 106 mmol/L (98-107); POTASSIUM 4.7 mmol/L (3.5-5.1); SODIUM 142 mmol/L (136-145)
[2018-04-07 08:00] VITALS: BP 134/68
[2018-04-07] MEDS ORDERED: PREDNISONE10 MG PO (10:09)
[2018-04-07] MEDS ORDERED: VIBRAMYCIN100 MG PO (10:09)
== END 2018-04-07 11:10 | disposition home or self-care (01) | DRG 190 ==
LOC: ED 19:18 → 5E 21:33 → EDHOLD 21:33 → 5E 04-05 10:43
PROVIDERS: Internal Medicine; Physician Assistant
DX: J44.1 Chronic obstructive pulmonary disease with (acute) exacerbation (principal); J18.9 Pneumonia, unspecified organism; J96.11 Chronic respiratory failure with hypoxia; E87.1 Hypo-osmolality and hyponatremia; Z68.41 Body mass index [BMI] 40.0-44.9, adult; G47.33 Obstructive sleep apnea (adult) (pediatric); E03.9 Hypothyroidism, unspecified; F17.200 Nicotine dependence, unspecified, uncomplicated; E53.9 Vitamin B deficiency, unspecified; E55.9 Vitamin D deficiency, unspecified; J20.9 Acute bronchitis, unspecified; E66.01 Morbid (severe) obesity due to excess calories; E87.5 Hyperkalemia; Z90.710 Acquired absence of both cervix and uterus; Z99.81 Dependence on supplemental oxygen; Z82.49 Family history of ischemic heart disease and other diseases of the circulatory system; Z71.6 Tobacco abuse counseling; J44.0 Chronic obstructive pulmonary disease with (acute) lower respiratory infection

== ENCOUNTER → 2019-06-27 | Outpatient (CLI) | payer OTHER ==
[~2019-06-27] MED LIST changes: +BREO ELLIPTA 21 EACH INH; +FLOVENT DISKU100 MCG INH; +PRILOSEC20 M1 PO; +Synthroid,Lev200 MCG PO; +VENTOLIN 02.5 MG/3 M INH; +VIBRAMYCIN100 MG PO; +VOLTAREN100 GM T; +ZYRTEC10 MG PO
== END | disposition home or self-care (01) ==
LOC: US 12:05
DX: I65.23 Occlusion and stenosis of bilateral carotid arteries (principal); R42 Dizziness and giddiness

== ENCOUNTER → 2019-09-24 | Outpatient (CLI) | payer OTHER ==
[2019-09-24 11:19] LABS: CREATININE 0.79 mg/dL (0.55-1.02)
== END | disposition home or self-care (01) ==
LOC: CARD 10:00 → LAB 10:02
PROVIDERS: Radiology Diagnostic Radiology
DX: I65.22 Occlusion and stenosis of left carotid artery (principal); R06.02 Shortness of breath; M79.89 Other specified soft tissue disorders

== ENCOUNTER → 2020-01-16 | Outpatient (CLI) | payer OTHER ==
--- NOTE | 2020-01-16 09:19 | NUR ---
SPEECH PATHOLOGY Outpatient MBS completed as per orders. Patient c/o pills sticking in her throat. Medical history includes GERD, COPD and thyroid problems. Patient consumes a regular diet and thin liquid and denied any difficulty swallowing food or liquid. She reported having excess phlegm in her throat, which she believed may be causing her difficulty. Patient was wearing o2 at 3L. Oral exam revealed lingual/labial and buccal skills WNL in terms of strength, ROM and coordination. She was able to volitionally cough and swallow. She was assessed with puree, solid, thin liquid by cup/straw and barium coated pill. Results revealed swallowing skills essentially WNL. She was slow to swallow the barium coated pill, and needed several sips of liquid in order to help move the pill through the pharynx. Recommend patient use strategies to take pills more easily, such as moistening mouth prior to pill taking, taking liquid with several sips of liquid or taking pills in applesauce or pudding. Patient verbalized understanding of all information provided. Dictated report to follow. Thank you for this referral. AICHA RIOJAS MSCCC-NETWORK CABLER
== END | disposition home or self-care (01) ==
LOC: RAD/SH 08:38
PROVIDERS: ATTEND Nurse Practitioner Family
DX: R13.10 Dysphagia, unspecified (principal); K21.9 Gastro-esophageal reflux disease without esophagitis; E66.9 Obesity, unspecified; E03.9 Hypothyroidism, unspecified; F41.9 Anxiety disorder, unspecified

== ENCOUNTER 2020-08-06 10:16 | Emergency (ER) | payer OTHER ==
[~2020-08-06] VITALS: Ht 165.1 cm; Wt 129.3 kg
[2020-08-06 10:35] VITALS: BP 122/54
[2020-08-06] MEDS ORDERED: HYDROCODONE-AC1 EAC1 PO (12:52)
[2020-08-06] MEDS ORDERED: MEDROL DOSEPAK4 MG PO (12:52)
== END 2020-08-06 12:57 | disposition home or self-care (01) ==
LOC: ED 10:16
DX: M54.16 Radiculopathy, lumbar region (principal); Z79.899 Other long term (current) drug therapy; Z90.49 Acquired absence of other specified parts of digestive tract; Z90.711 Acquired absence of uterus with remaining cervical stump

== ENCOUNTER 2020-09-01 08:29 | Emergency (ER) | payer OTHER ==
[~2020-09-01] VITALS: Ht 165.1 cm; Wt 127.0 kg
[~2020-09-01 08:29] MED LIST changes: +HYDROCODONE-AC1 EAC1 PO; +MEDROL DOSEPAK4 MG PO
[2020-09-01 08:37] VITALS: BP 114/47
[2020-09-01] MEDS ORDERED: PREDNISONE50 MG PO (08:49)
== END 2020-09-01 08:52 | disposition home or self-care (01) ==
LOC: ED 08:29
DX: S39.012A Strain of muscle, fascia and tendon of lower back, initial encounter (principal); Z79.899 Other long term (current) drug therapy; Z90.49 Acquired absence of other specified parts of digestive tract; Z90.711 Acquired absence of uterus with remaining cervical stump; X58.XXXA Exposure to other specified factors, initial encounter; Y93.89 Activity, other specified; Y92.89 Other specified places as the place of occurrence of the external cause; Y99.8 Other external cause status

== ENCOUNTER 2020-12-23 19:18 | Emergency (ER) | payer OTHER ==
[~2020-12-23] VITALS: Ht 165.1 cm; Wt 135.2 kg
[~2020-12-23 19:18] MED LIST changes: +PREDNISONE50 MG PO
[2020-12-23 20:37] LABS: BASO % 0.4 % (0.0-1.0); EOS # 0.2 10*3/uL (0.0-0.4); HEMATOCRIT 40.7 % (37.0-47.0); LYMPH # 1.6 10*3/uL (1.3-4.4); LYMPH % 21.6 % (27.0-41.0); MEAN CELL VOLUME 94.7 fl (81.0-99.0); MEAN CORPUSCULAR HGB 28.8 pg (27.0-31.0); MEAN CORPUSCULAR HGB CONC 30.5 g/dl (33.0-37.0); MEAN PLATELET VOLUME 8.9 fl (9.6-12.3); MONO # 0.5 10*3/uL (0.1-1.0); MONO % 7.3 % (3.0-9.0); NEUT # 4.9 10*3/uL (2.3-7.9); NEUT % 67.4 % (47.0-73.0); PLATELET COUNT AUTOMATED 230 10*3/uL (130-400); WHITE BLOOD COUNT 7.3 10*3/uL (4.8-10.8)
[2020-12-23 20:56] LABS: ALBUMIN 3.6 gm/dl (3.1-4.5); ALKALINE PHOSPHATASE 75 U/L (45-117); BUN 17 mg/dl (7-24); CHLORIDE 98 mmol/L (98-107); CREATININE 0.88 mg/dL (0.55-1.02); SGOT/AST 22 IU/L (3-35); SGPT/ALT 31 U/L (12-78); SODIUM 139 mmol/L (136-145); TOTAL PROTEIN 8.1 gm/dL (6.4-8.2)
[2020-12-23 21:08] LABS: TROPONIN I < 0.015 ng/ml (<0.045)
[2020-12-24] VITALS: BP 130/76
== END 2020-12-24 02:30 | disposition home or self-care (01) ==
LOC: ED 19:18
PROVIDERS: Emergency Medicine
DX: R07.89 Other chest pain (principal); J44.9 Chronic obstructive pulmonary disease, unspecified; E03.9 Hypothyroidism, unspecified; F17.200 Nicotine dependence, unspecified, uncomplicated; E66.9 Obesity, unspecified; Z90.710 Acquired absence of both cervix and uterus; Z79.899 Other long term (current) drug therapy

== ENCOUNTER 2021-02-20 13:09 | Emergency (ER) | payer OTHER ==
[~2021-02-20] VITALS: Ht 165.1 cm; Wt 129.3 kg
[2021-02-20 14:10] VITALS: BP 116/67
[2021-02-20] MEDS ORDERED: HYDROCODONE-AC1 EAC1 PO (14:32)
[2021-02-20] MEDS ORDERED: MEDROL DOSEPAK4 MG PO (14:32)
== END 2021-02-20 15:49 | disposition home or self-care (01) ==
LOC: ED 13:09
DX: M54.31 Sciatica, right side (principal)

== ENCOUNTER → 2021-03-16 | Outpatient (CLI) | payer OTHER ==
[2021-03-16 12:27] LABS: ALBUMIN 2.9 gm/dl (3.1-4.5); BUN 19 mg/dl (7-24); CHLORIDE 102 mmol/L (98-107); CREATININE 0.85 mg/dL (0.55-1.02); LIPASE 69 U/L (73-393); POTASSIUM 4.2 mmol/L (3.5-5.1); SGOT/AST 22 IU/L (3-35); SGPT/ALT 32 U/L (12-78); SODIUM 138 mmol/L (136-145)
[2021-03-16 12:29] LABS: ALKALINE PHOSPHATASE 65 U/L (45-117); TOTAL PROTEIN 6.8 gm/dL (6.4-8.2)
[2021-03-17 04:06] LABS: RHEUMATOID ARTHRITIS FACTOR 13.4 IU/mL (<14.0)
[2021-03-18 05:06] LABS: PTT-LA 37.1 sec (0.0-51.9)
[2021-03-18 08:08] LABS: DVVTMIXRFX CHG; LUPUS DRVVT 56.2 sec (0.0-47.0)
[2021-03-18 09:07] LABS: LUPUS REFLEX INTERPRETATION Comment: (.)
== END | disposition home or self-care (01) ==
LOC: LAB 11:15
PROVIDERS: ATTEND Family Medicine
DX: R10.13 Epigastric pain (principal); M25.50 Pain in unspecified joint; R07.89 Other chest pain